=== PATIENT | male | born 1950 | race Caucasian/White ===

== ENCOUNTER → 2020-09-06 | Outpatient (CLI) | payer MEDICARE, OTHER ==
[~2020-09-06] MED LIST: ASPI325T; PERC5TAB8
--- NOTE | 2020-09-06 11:09 | REPVR ---
PROCEDURE INFORMATION: Exam: CT Maxillofacial Without Contrast, Sinus Exam date and time: 09/06/2020 10:41 AM Age: 70 years old Clinical indication: Other: Nasal polyp TECHNIQUE: Imaging protocol: CT Maxillofacial without contrast. Focus on the sinuses. Radiation optimization: All CT scans at this facility use at least one of these dose optimization techniques: automated exposure control; mA and/or kV adjustment per patient size (includes targeted exams where dose is matched to clinical indication); or iterative reconstruction. COMPARISON: No relevant prior studies available. FINDINGS: Frontal sinuses/ Ethmoid air cells: There is a polypoid density projecting inferiorly into the superior nasal cavity from left anterior ethmoid air cell and/or inferior frontal sinus with lack of portion of wall between the ethmoid air cell and frontal sinus. This suggests the presence of a polyp, measuring approximately 22 mm x 5.5 mm x 13 mm. There is associated opacification of nasofrontal recess. The right nasofrontal recess is also opacified contiguous with mucosal thickening in right frontal sinus and this could be mucosal thickening or additional polyp. These are located lateral to middle turbinates. There is moderate mucosal thickening and polypoid retention cysts or polyps in bilateral ethmoid air cells and frontal sinuses. No air-fluid levels. Sphenoid sinuses: No air-fluid levels. There is mild mucosal thickening in bilateral sphenoid sinuses. Maxillary sinuses: There is mild mucosal thickening and multiple retention cysts or polyps in bilateral maxillary sinuses. No air-fluid levels. Ostiomeatal units are patent. Nasal cavity/Septum: Nasal septum is mildly deviated to both sites. Mucosa of turbinates is thin. Orbital cavity: Unremarkable as visualized. Bones/joints: Unremarkable. No acute fracture. Soft tissues: Unremarkable. IMPRESSION: Sinonasal polyposis and mucosal thickening. Electronically signed by: Johanna Kahn On 09/06/2020 11:09:51 AM
== END ==
LOC: M RAD 10:34
PROVIDERS: ATTEND Otolaryngology
DX: J33.9 Nasal polyp, unspecified (principal)